=== PATIENT | male | born 1950 | race Caucasian/White ===

== ENCOUNTER 2018-08-20 10:28 | Day surgery (SDC) | payer MEDICARE, OTHER ==
[~2018-08-20] VITALS: Ht 183 cm; Wt 128.0 kg
[2018-08-20] VITALS (9 sets, daily range): BP systolic 145–170; BP diastolic 90–102; PULSE 62–68; TEMP 98.4
[~2018-08-20 10:28] MED LIST: 00186-0370-20 IH; ALDACTONE 25MG25 M1 PO; ALLERGY RELIEF10 M1 PO; ASPIRIN 32325 MG/TA1 PO; ASPIRIN 32325 MG/TAB PO; ASPIRIN 81M81 MG/TA2 PO; ASPIRIN E.C. 8181 MG PO; CLARITIN 1010 MG/TAB PO; CLARITIN REDITA10 MG PO; CLINDAMYCIN300 MG PO; COZAAR100 MG PO; COZAAR50 MG PO; FUROSEMIDE PO; GLUCOPHAGE850 MG/TAB PO; HCTZ 25MG25 MG PO; HORIZANT600 MG PO; IPRATROPIUM BROM3 M1 IH; LANTUS100 U/ML SC; LANTUS100 U/ML SQ; LEVAQUIN 750MG750 M1 PO; METFORMIN850 MG PO; METOPROLOL SUCC25 M1 PO; MOTRIN800 MG PO; NEURONTIN300 MG PO; NEURONTIN300 MG/CAP PO; NEURONTIN600 MG/TAB PO; NOVOLOG 100U100 U/M1 SC; NOVOLOG FLEX100 U/ML SQ; PREDNISONE20 MG PO; PROVENTIL0.09 MG/A1 IH; RT SPIRIVA18 MCG IH; SERTRALINE100 MG PO; TOPROL XL100 MG PO; WELLBUTRIN SR150 M1 PO; ZITHROMAX500 M2 PO; ZOCOR 40MG40 MG PO; ZOLOFT 100MG100 MG PO; ZOLOFT100 MG PO
[2018-08-20 11:30] LABS: HEMATOCRIT 45.7 % (42.0-52.0); HEMOGLOBIN 15.2 g/dl (13.5-18.0); MEAN CELL VOLUME 86 fl (80.0-100.0); MEAN CORPUSCULAR HEMOGLOBIN 29 pg (27.0-31.0); MEAN CORPUSCULAR HGB CONC 33 g/dl (33.0-37.0); MEAN PLATELET VOLUME 9.8 fl (7.4-10.4); PLATELET COUNT 187 K/mm3 (130-400); RED BLOOD COUNT 5.31 M/mm3 (4.20-5.60)
[2018-08-20 11:40] LABS: CALCIUM 8.9 mg/dL (8.4-10.2); CREATININE, serum 0.83 mg/dL (0.66-1.25); POTASSIUM 3.8 mmol/L (3.4-5.0)
[2018-08-20 11:42] LABS: INR 1.1 (0.8-3.0)
[2018-08-20] MEDS ORDERED: MULTI VITAMINS1 TAB PO (11:59)
[2018-08-20] MEDS ORDERED: VITAMIN D 1001000 IU (11:59)
[2018-08-20] MEDS ORDERED: LYRICA200 MG PO (12:00)
[2018-08-20] MEDS ORDERED: COZAAR 25MG25 MG/TAB PO (12:00)
[2018-08-20] MEDS ORDERED: LIPITOR 40MG TA40 MG PO (12:01)
== END 2018-08-20 17:45 | disposition home or self-care (01) ==
LOC: COL.CAR 10:28
PROVIDERS: Internal Medicine Interventional Cardiology
DX: I25.118 Atherosclerotic heart disease of native coronary artery with other forms of angina pectoris (principal); R60.0 Localized edema; G62.9 Polyneuropathy, unspecified; Z87.891 Personal history of nicotine dependence; E11.9 Type 2 diabetes mellitus without complications; E78.5 Hyperlipidemia, unspecified; I10 Essential (primary) hypertension; Z95.1 Presence of aortocoronary bypass graft; E66.9 Obesity, unspecified; G47.33 Obstructive sleep apnea (adult) (pediatric); Z90.49 Acquired absence of other specified parts of digestive tract; Z82.49 Family history of ischemic heart disease and other diseases of the circulatory system; Z83.3 Family history of diabetes mellitus; Z88.0 Allergy status to penicillin; Z79.82 Long term (current) use of aspirin; Z79.4 Long term (current) use of insulin; Z88.1 Allergy status to other antibiotic agents; Z88.8 Allergy status to other drugs, medicaments and biological substances; Z88.2 Allergy status to sulfonamides
CPT/HCPCS: C1760; C1769; C1894; J1644; J2250; J3010